=== PATIENT | male | born 1955 | race Caucasian/White ===

== ENCOUNTER 2021-11-29 09:58 | Day surgery (SDC) | payer MEDICARE, OTHER ==
[~2021-11-29 09:58] MED LIST: Lactated Ringers 1,000 ML IV SCH
[2021-11-29] MEDS ORDERED: Propofol 200 MG/20 ML SDV ONE (10:39)
[2021-11-29] MEDS ORDERED: Lidocaine 2% 5 ML SDV ONE (10:40)
[2021-11-29] MEDS ORDERED: Ketamine 500 mg/10 ML MDV ONE (10:40)
[2021-11-29] MEDS ORDERED: Lactated Ringers 1,000 ML IV SCH (13:45)
== END 2021-11-29 13:51 | disposition home or self-care (01) ==
LOC: MW.SDS 09:58
PROVIDERS: ATTEND Surgery
DX: Z12.11 Encounter for screening for malignant neoplasm of colon (principal); D12.3 Benign neoplasm of transverse colon; D12.5 Benign neoplasm of sigmoid colon; K62.1 Rectal polyp; I10 Essential (primary) hypertension; M19.90 Unspecified osteoarthritis, unspecified site; E66.01 Morbid (severe) obesity due to excess calories; D69.6 Thrombocytopenia, unspecified; Z79.899 Other long term (current) drug therapy; Z98.1 Arthrodesis status; Z96.649 Presence of unspecified artificial hip joint; Z98.890 Other specified postprocedural states
CPT/HCPCS: J2704; J3490; J7120